=== PATIENT | female | born 2000 | race Caucasian/White ===

== ENCOUNTER 2022-06-29 11:32 | Outpatient (CLI) | payer OTHER, BC, SELFPAY ==
--- NOTE | ~2022-06-29 | US_ITS ---
Pelvic ultrasound. Clinical History: Abnormal uterine bleeding Technique: Realtime transabdominal and transvaginal scanning of the pelvis was performed. Color flow Doppler and Doppler spectral analysis were performed. Findings: The uterus is anteverted. The endometrial stripe has a thickness of 3 mm. IUD in satisfact ory position. No focal mass is identified. The right ovary measures 2.2 x 1.7 x 1.3 cm. No significant right ovarian or adnexal mass is seen. The left ovary measures 2.5 x 1.9 x 1.2 cm. No significant left ovarian or adnexal mass is seen. Arterial flow present in both ovaries on Doppler spectral analysis. There is no evidence of free fluid in the cul de sac. Impression: IUD in place, otherwise unremarkable exam. No evidence of torsion. Reviewed, dictated and finalized at location [] [employer] Impression: IUD in place, otherwise unremarkable exam. No evidence of torsion.
== END 2022-06-29 11:33 | disposition home or self-care (01) ==
PROVIDERS: Visit Provider Nurse Practitioner Obstetrics & Gynecology
DX: N93.9 Abnormal uterine and vaginal bleeding, unspecified (principal); Z97.5 Presence of (intrauterine) contraceptive device
CPT/HCPCS: 76830; 76856